=== PATIENT | female | born 1980 | race Caucasian/White ===

== ENCOUNTER → 2019-02-11 | Outpatient (CLI) | payer OTHER ==
[~2019-02-11] MED LIST: AMOCLA500 PO; AMOCLA875 PO; CIPR500 PO; HYDACE5 PO; HYDACE5325 PO; MUPIROCIN15 GM TOP; NAPR375 PO; NAPR500 PO; PROCODE120 PO; TRIA80TC TOP
[2019-02-13 14:07] LABS: HPV 16 Negative (Negative); HPV 18 Negative (Negative); HPV OTHER HR TYPES Negative (Negative)
== END ==
LOC: LAB SHORT 18:43 → LAB 18:43
PROVIDERS: Registered Nurse Community Health
DX: Z12.4 Encounter for screening for malignant neoplasm of cervix (principal)
CPT/HCPCS: 87624; G0123